=== PATIENT | male | born 1955 | race Caucasian/White ===

== ENCOUNTER → 2019-06-09 10:13 | Outpatient (BNVA) | payer BC, SELFPAY | PROVIDERS: Visit Provider Nurse Practitioner | DX: Z00.00 Encounter for general adult medical examination without abnormal findings (principal); J84.10 Pulmonary fibrosis, unspecified; K21.9 Gastro-esophageal reflux disease without esophagitis; Z12.5 Encounter for screening for malignant neoplasm of prostate; F17.210 Nicotine dependence, cigarettes, uncomplicated | CPT/HCPCS: 71046; 80053; 80061; 81003; 85025; G0103 ==

== ENCOUNTER → 2021-08-14 10:12 | Outpatient (BNVA) | payer MEDICARE, SELFPAY | PROVIDERS: Visit Provider Nurse Practitioner | DX: E78.2 Mixed hyperlipidemia (principal); Z12.5 Encounter for screening for malignant neoplasm of prostate; F17.210 Nicotine dependence, cigarettes, uncomplicated | CPT/HCPCS: 80053; 80061; 81000; 85025; G0103 ==

== ENCOUNTER 2021-09-04 12:24 | Oncology outpatient (recurring) (ONCR) | payer MEDICARE, SELFPAY | END 2021-09-19 23:59 | disposition home or self-care (01) | PROVIDERS: PCP Nurse Practitioner; Visit Provider Internal Medicine Medical Oncology | DX: D75.1 Secondary polycythemia (principal); F17.210 Nicotine dependence, cigarettes, uncomplicated; F10.20 Alcohol dependence, uncomplicated; Z79.899 Other long term (current) drug therapy | CPT/HCPCS: 80503; 81219; 81339; 81403; 81479; 99204; 99999 ==

== ENCOUNTER 2021-09-04 13:58 | Outpatient (CLI) | payer MEDICARE, SELFPAY ==
--- NOTE | 2021-09-04 14:11 | CT_ITS ---
WS: [email or web address] CT CHEST WITHOUT INTRAVENOUS CONTRAST HISTORY: SMOKER/HYPERLIPIDEMA TECHNIQUE: Contiguous 5 mm axial imaging performed on the thorax. Coronal and sagittal reformats are submitted. All CT scans at [facility] use at least one of these dose optimization techniques: automated exposure control; mA and/or kV adjustment per patient size (includes targeted exams where dose is matched to clinical indication); or iterative reconstruction. CONTRAST: None DLP: 694.10 mGy-cm. COMPARISON: Neck CT 11/12/2011. Lungs and central airway: LEFT apical pleural thickening and nodularity is asymmetric to the RIGHT. N odule measures 2.2 x 1.8 cm. Very similar appearance to the prior CT from 2011. Pleura: Normal. No pleural effusion. Heart and pericardium: Normal size heart with no pericardial effusion. Mediastinum and nora: Small benign-appearing lymph nodes. No adenopathy. Calcified LEFT hilar lymph n odes. Vessels: Mild atherosclerosis aorta. Normal size pulmonary artery. Chest wall and lower neck: No soft tissue masses. Upper abdomen: No adrenal mass. Visualized liver and gallbladder are negative. Splenic granulomata. Osseous structures: No destructive process. CT/CT chest wo con [id number] IMPRESSION: 1. Long-term stability LEFT apical pulmonary nodule and pleural thickening. Si milar to the prior study of 11/12/2011. 2. No adenopathy or additional mass. 3. Normal adrenal glands. 4. Normal heart.
== END 2021-09-04 13:59 | disposition home or self-care (01) ==
LOC: RAD 13:59
PROVIDERS: PCP Nurse Practitioner; Visit Provider Nurse Practitioner
DX: E78.2 Mixed hyperlipidemia (principal); F17.210 Nicotine dependence, cigarettes, uncomplicated; R91.1 Solitary pulmonary nodule; D75.1 Secondary polycythemia
CPT/HCPCS: 71250; 80053; 81270; 82668; 83615; 85025

== ENCOUNTER 2021-10-09 13:00 | Oncology outpatient (recurring) (ONCR) | payer MEDICARE, SELFPAY ==
--- NOTE | 2021-10-04 12:45 | US_ITS ---
WS: [email or web address] RENAL ULTRASOUND HISTORY: assess for renal tumor COMPARISON: None available. TECHNIQUE: 2-D and color Doppler imaging of the kidney submitted. Right kidney: 10.4 cm x 5.0 cm x 4.3 cm. Normal echogenicity with no hydronephrosis or mass. Left kidney: 10.8 cm x 5.8 cm x 4.7 cm. Normal echogenicity with no hydronephrosis or mass. Aorta: Mild dilatation and ectasia and aneurysmal formation of the aorta. Largest diameter 3.4 cm. Mo derate mural thickening is asymmetric. Urinary Bladder: Nondistended. US/US renal BI* [id number] IMPRESSION: 1. Normal renal ultrasound. No mass or obstruction. 2. Small abdominal aortic aneurysm, 3.4 cm maximum diameter.
[2021-10-09 12:37] LABS: Basophils % 0.4 %; Eosinophils # 0.2 10^3/uL (0.0-0.8); Eosinophils % 2.2 %; Hematocrit 56.2 % (42.0-52.0); Hemoglobin 19.5 g/dL (11.7-16.6); Lymphocytes # 2.4 10^3/uL (0.8-4.8); Lymphocytes % 29.9 %; Mean Corpuscular HGB Conc 34.7 g/dL (30.0-36.0); Mean Corpuscular Hemoglobin 32.5 pg (28.0-34.0); Mean Corpuscular Volume 93.7 fl (80-94); Mean Platelet Volume 9.6 fL (7.4-10.4); Monocytes # 0.8 10^3/uL (0.2-0.9); Monocytes % 9.4 %; Neutrophils # 4.65 10^3/uL (1.8-7.7); Neutrophils % 57.9 %; Nucleated Red Blood Cells % 0 %; Platelet Count 210 10^3/cmm (130-400); Red Cell Distribution Width 13.7 % (12.1-15.1); White Blood Count 8.1 10^3/uL (4.0-10.0)
[2021-10-09 12:49] VITALS: BP 116/72; PULSE 72; RESP 18; TEMP 36.6; O2SAT 98
[2021-10-09 13:19] VITALS: BP 119/79; PULSE 88; RESP 18; TEMP 36.7; O2SAT 95
== END 2021-10-19 23:59 | disposition home or self-care (01) ==
PROVIDERS: PCP Nurse Practitioner; Visit Provider Internal Medicine Medical Oncology
DX: D75.1 Secondary polycythemia (principal); Z53.9 Procedure and treatment not carried out, unspecified reason
CPT/HCPCS: 36415; 76770; 85025; 86850; 86900; 99195

== ENCOUNTER 2021-10-25 12:40 | Oncology outpatient (recurring) (ONCR) | payer MEDICARE, SELFPAY ==
[2021-10-25 13:01] LABS: Basophils # 0.1 10^3/uL (0.0-0.1); Basophils % 0.7 %; Eosinophils # 0.2 10^3/uL (0.0-0.8); Eosinophils % 2.7 %; Hematocrit 53.8 % (42.0-52.0); Hemoglobin 18.8 g/dL (11.7-16.6); Lymphocytes # 2.5 10^3/uL (0.8-4.8); Lymphocytes % 34.1 %; Mean Corpuscular HGB Conc 34.9 g/dL (30.0-36.0); Mean Corpuscular Hemoglobin 32.9 pg (28.0-34.0); Mean Corpuscular Volume 94.1 fl (80-94); Mean Platelet Volume 9.4 fL (7.4-10.4); Monocytes # 0.7 10^3/uL (0.2-0.9); Monocytes % 9.3 %; Neutrophils # 3.87 10^3/uL (1.8-7.7); Neutrophils % 53.1 %; Nucleated Red Blood Cells % 0 %; Platelet Count 225 10^3/cmm (130-400); Red Blood Count 5.72 10^6/uL (4.1-5.3); Red Cell Distribution Width 14.3 % (12.1-15.1); White Blood Count 7.3 10^3/uL (4.0-10.0)
== END 2021-11-19 23:59 | disposition home or self-care (01) ==
LOC: ONCMED 12:41
PROVIDERS: PCP Nurse Practitioner; Visit Provider Internal Medicine Medical Oncology
DX: D75.1 Secondary polycythemia (principal); F17.210 Nicotine dependence, cigarettes, uncomplicated
CPT/HCPCS: 85025; 99214

== ENCOUNTER → 2022-05-01 09:08 | Outpatient (BNVA) | payer MEDICARE, OTHER, SELFPAY | PROVIDERS: PCP Nurse Practitioner; Visit Provider Nurse Practitioner | DX: I71.40 Abdominal aortic aneurysm, without rupture, unspecified (principal); D75.1 Secondary polycythemia; R91.1 Solitary pulmonary nodule | CPT/HCPCS: 80053; 80061; 85025 ==

== ENCOUNTER 2022-05-18 08:18 | Oncology outpatient (recurring) (ONCR) | payer MEDICARE, OTHER, SELFPAY ==
[2022-05-07 14:14] LABS: Hematocrit 53.7 % (42.0-52.0); Hemoglobin 18.4 g/dL (11.7-16.6)
[2022-05-18 08:55] LABS: Basophils # 0.1 10^3/uL (0.0-0.1); Basophils % 0.8 %; Eosinophils # 0.3 10^3/uL (0.0-0.8); Eosinophils % 3.9 %; Hematocrit 55.1 % (42.0-52.0); Hemoglobin 19.1 g/dL (11.7-16.6); Lymphocytes # 2.2 10^3/uL (0.8-4.8); Lymphocytes % 30.4 %; Mean Corpuscular HGB Conc 34.7 g/dL (30.0-36.0); Mean Corpuscular Hemoglobin 32.6 pg (28.0-34.0); Mean Platelet Volume 9.6 fL (7.4-10.4); Monocytes # 0.7 10^3/uL (0.2-0.9); Monocytes % 9.4 %; Neutrophils # 4.08 10^3/uL (1.8-7.7); Neutrophils % 55.4 %; Nucleated Red Blood Cells % 0 %; Platelet Count 223 10^3/cmm (130-400); Red Blood Count 5.86 10^6/uL (4.1-5.3); Red Cell Distribution Width 12.8 % (12.1-15.1); White Blood Count 7.4 10^3/uL (4.0-10.0)
== END 2022-05-22 23:59 | disposition home or self-care (01) ==
PROVIDERS: PCP Nurse Practitioner; Visit Provider Internal Medicine Medical Oncology
DX: D75.1 Secondary polycythemia (principal)
CPT/HCPCS: 36415; 85014; 85018; 85025; 99214

== ENCOUNTER 2022-06-08 09:00 | Oncology outpatient (recurring) (ONCR) | payer MEDICARE, OTHER, SELFPAY ==
[2022-05-25 08:24] LABS: Basophils # 0.1 10^3/uL (0.0-0.1); Basophils % 0.7 %; Eosinophils # 0.3 10^3/uL (0.0-0.8); Eosinophils % 4.1 %; Hemoglobin 19.8 g/dL (11.7-16.6); Lymphocytes # 2.6 10^3/uL (0.8-4.8); Lymphocytes % 33.7 %; Mean Corpuscular HGB Conc 34.7 g/dL (30.0-36.0); Mean Corpuscular Hemoglobin 32.9 pg (28.0-34.0); Mean Corpuscular Volume 94.7 fl (80-94); Mean Platelet Volume 9.5 fL (7.4-10.4); Monocytes # 0.8 10^3/uL (0.2-0.9); Monocytes % 10.2 %; Neutrophils # 3.91 10^3/uL (1.8-7.7); Nucleated Red Blood Cells % 0 %; Platelet Count 216 10^3/cmm (130-400); Red Blood Count 6.02 10^6/uL (4.1-5.3); White Blood Count 7.7 10^3/uL (4.0-10.0)
[2022-06-08 08:13] LABS: Basophils # 0.1 10^3/uL (0.0-0.1); Basophils % 0.8 %; Eosinophils # 0.3 10^3/uL (0.0-0.8); Eosinophils % 4.1 %; Hematocrit 51.6 % (42.0-52.0); Hemoglobin 17.9 g/dL (11.7-16.6); Lymphocytes # 2.5 10^3/uL (0.8-4.8); Lymphocytes % 33.2 %; Mean Corpuscular HGB Conc 34.7 g/dL (30.0-36.0); Mean Corpuscular Hemoglobin 32.7 pg (28.0-34.0); Mean Corpuscular Volume 94.3 fl (80-94); Mean Platelet Volume 9.3 fL (7.4-10.4); Monocytes # 0.7 10^3/uL (0.2-0.9); Monocytes % 9.2 %; Neutrophils # 3.88 10^3/uL (1.8-7.7); Neutrophils % 52.4 %; Nucleated Red Blood Cells % 0 %; Platelet Count 247 10^3/cmm (130-400); Red Blood Count 5.47 10^6/uL (4.1-5.3); Red Cell Distribution Width 13.2 % (12.1-15.1); White Blood Count 7.4 10^3/uL (4.0-10.0)
== END 2022-06-19 23:59 | disposition home or self-care (01) ==
PROVIDERS: PCP Nurse Practitioner; Visit Provider Internal Medicine Medical Oncology
DX: D75.1 Secondary polycythemia (principal)
CPT/HCPCS: 36415; 85025; 99195

== ENCOUNTER 2022-06-08 10:52 | Outpatient (CLI) | payer MEDICARE, OTHER, SELFPAY ==
[2022-06-08] MEDS: iohexol 350 mg/mL 500 mL Btl (per mL) PO (11:24)
[2022-06-08] MEDS: iohexol 350 mg/mL 500 mL Btl (per mL) IV (12:22)
--- NOTE | 2022-06-08 12:30 | CT_ITS ---
WS: [email or web address] CT CHEST, ABDOMEN, AND PELVIS TECHNIQUE: Contrast-enhanced CT of the chest, abdomen, and pelvis with coronal and sagittal reformatt ed images. CLINICAL INFORMATION: D75.1 - Secondary polycythemia COMPARISON: CT chest September 04, 2021 DLP: 851.[address] scans at [facility] use at least one of these dose optimization techniques: automated e xposure control; mA and/or kV adjustment per patient size (includes targeted exams where dose is matc hed to clinical indication); or iterative reconstruction. CT CHEST: Mild chronic emphysematous changes. No acute pulmonary infiltrates. Stable pleural thickening with no dularity LEFT lung apex. This measures 1.7 x 1.9 x 0.9 cm unchanged. Stable pleural thickening LEFT l howard apex. Normal caliber thoracic aorta. Aortic calcification. Normal thyroid gland. Prominent peribronchial and mediastinal lymph nodes uncha nged. No axillary lymphadenopathy. Normal GE junction. CT ABDOMEN AND PELVIS: Diffuse fatty infiltration liver. Gallbladder is contracted. Normal portal vein and splenic vein. Nor mal pancreatic parenchymal enhancement. Normal spleen. Splenic granulomas. Tiny esophageal hiatal her skye. Adrenal glands are normal. Normal renal parenchymal enhancement. No hydronephrosis. Fusiform sloane donald infrarenal abdominal aortic aneurysm. Associated mural thrombus. Proximally measures 4.0 x 3.9 x 3.7 cm. Distally this measures approximately 2.8 x 3.1 x 2.4 cm AP by transverse by craniocaudal. Mild prostate enlargement measuring 4.5 CM. Normal sigmoid colon. No evidence of high-grade small or large bowel obstruction. CT/CT chest abdpel w/*[id number] IMPRESSION: 1. Stable LEFT apical pulmonary nodule with pleural thickening. This is unchan ged from previous. 2. A few prominent mediastinal and peribronchial lymph nodes unchanged from pr evious nonspecific but likely reactive. 3. Diffuse fatty infiltration liver. 4. Bilobed fusiform infrarenal abdominal aortic aneurysm measuring 4.0 x 3.9 x 3.7 cm in maximum dimension with associated mural thrombus. Recommend vascular surgery consultation. 5. Mild prostate enlargement measuring 4.5 CM.
== END 2022-06-08 10:53 | disposition home or self-care (01) ==
LOC: RAD 10:53
PROVIDERS: PCP Nurse Practitioner; Visit Provider Nurse Practitioner
DX: D75.1 Secondary polycythemia (principal); R91.1 Solitary pulmonary nodule; N40.0 Benign prostatic hyperplasia without lower urinary tract symptoms; K76.0 Fatty (change of) liver, not elsewhere classified; I71.43 Infrarenal abdominal aortic aneurysm, without rupture
CPT/HCPCS: 71260; 74177; Q9967

== ENCOUNTER 2022-07-05 10:30 | Oncology outpatient (recurring) (ONCR) | payer MEDICARE, OTHER, SELFPAY ==
[2022-06-22 09:41] LABS: Basophils # 0.1 10^3/uL (0.0-0.1); Basophils % 0.9 %; Eosinophils # 0.2 10^3/uL (0.0-0.8); Eosinophils % 3.6 %; Hematocrit 52.6 % (42.0-52.0); Hemoglobin 18.1 g/dL (11.7-16.6); Lymphocytes # 2.3 10^3/uL (0.8-4.8); Lymphocytes % 33.7 %; Mean Corpuscular HGB Conc 34.4 g/dL (30.0-36.0); Mean Corpuscular Hemoglobin 32.7 pg (28.0-34.0); Mean Corpuscular Volume 94.9 fl (80-94); Mean Platelet Volume 9.7 fL (7.4-10.4); Monocytes # 0.7 10^3/uL (0.2-0.9); Monocytes % 9.7 %; Nucleated Red Blood Cells % 0 %; Platelet Count 211 10^3/cmm (130-400); Red Blood Count 5.54 10^6/uL (4.1-5.3); White Blood Count 6.7 10^3/uL (4.0-10.0)
[2022-07-05 10:19] LABS: Basophils # 0.1 10^3/uL (0.0-0.1); Basophils % 0.9 %; Eosinophils # 0.2 10^3/uL (0.0-0.8); Eosinophils % 2.9 %; Hematocrit 51.2 % (42.0-52.0); Hemoglobin 17.9 g/dL (11.7-16.6); Lymphocytes # 2.2 10^3/uL (0.8-4.8); Mean Corpuscular Hemoglobin 33.3 pg (28.0-34.0); Mean Corpuscular Volume 95.3 fl (80-94); Mean Platelet Volume 9.7 fL (7.4-10.4); Monocytes # 0.5 10^3/uL (0.2-0.9); Monocytes % 7.7 %; Neutrophils # 3.84 10^3/uL (1.8-7.7); Neutrophils % 56.2 %; Nucleated Red Blood Cells % 0 %; Platelet Count 203 10^3/cmm (130-400); Red Blood Count 5.37 10^6/uL (4.1-5.3); Red Cell Distribution Width 12.5 % (12.1-15.1); White Blood Count 6.8 10^3/uL (4.0-10.0)
[2022-07-05 11:40] VITALS: BP 131/78; PULSE 64; O2SAT 95
== END 2022-07-20 23:59 | disposition home or self-care (01) ==
PROVIDERS: PCP Nurse Practitioner; Visit Provider Internal Medicine Medical Oncology
DX: D75.1 Secondary polycythemia (principal)
CPT/HCPCS: 36415; 85025; 99195

== ENCOUNTER 2022-08-03 09:14 | Oncology outpatient (recurring) (ONCR) | payer MEDICARE, OTHER, SELFPAY ==
[2022-08-03 09:27] VITALS: BP 142/85; PULSE 64; TEMP 36.3; O2SAT 97
[2022-08-03 09:36] LABS: Basophils # 0.1 10^3/uL (0.0-0.1); Eosinophils # 0.2 10^3/uL (0.0-0.8); Eosinophils % 3.1 %; Hematocrit 55.5 % (42.0-52.0); Hemoglobin 18.7 g/dL (11.7-16.6); Lymphocytes # 1.7 10^3/uL (0.8-4.8); Lymphocytes % 28.5 %; Mean Corpuscular HGB Conc 33.7 g/dL (30.0-36.0); Mean Corpuscular Volume 98.1 fl (80-94); Mean Platelet Volume 9.4 fL (7.4-10.4); Monocytes # 0.5 10^3/uL (0.2-0.9); Monocytes % 7.9 %; Neutrophils # 3.59 10^3/uL (1.8-7.7); Neutrophils % 59.3 %; Nucleated Red Blood Cells % 0 %; Platelet Count 221 10^3/cmm (130-400); Red Blood Count 5.66 10^6/uL (4.1-5.3); Red Cell Distribution Width 13.4 % (12.1-15.1); White Blood Count 6.1 10^3/uL (4.0-10.0)
[2022-08-03 10:44] VITALS: BP 152/79; PULSE 68; O2SAT 97
== END 2022-08-19 23:59 | disposition home or self-care (01) ==
PROVIDERS: PCP Nurse Practitioner; Visit Provider Internal Medicine Medical Oncology
DX: D75.1 Secondary polycythemia (principal)
CPT/HCPCS: 36415; 85025; 99195

== ENCOUNTER → 2022-08-21 13:54 | Outpatient (BNVA) | payer MEDICARE, OTHER, SELFPAY | PROVIDERS: PCP Nurse Practitioner; Visit Provider Nurse Practitioner | DX: R41.3 Other amnesia (principal) | CPT/HCPCS: 82607; 84443 ==

== ENCOUNTER 2022-08-31 08:41 | Oncology outpatient (recurring) (ONCR) | payer MEDICARE, OTHER, SELFPAY ==
[2022-08-31 09:00] VITALS: BP 136/78; PULSE 58; RESP 18; TEMP 36.3; O2SAT 98
[2022-08-31 09:21] LABS: Basophils # 0.1 10^3/uL (0.0-0.1); Basophils % 0.8 %; Eosinophils # 0.2 10^3/uL (0.0-0.8); Eosinophils % 3.3 %; Hematocrit 55.6 % (42.0-52.0); Hemoglobin 18.8 g/dL (11.7-16.6); Lymphocytes # 1.7 10^3/uL (0.8-4.8); Lymphocytes % 27.5 %; Mean Corpuscular HGB Conc 33.8 g/dL (30.0-36.0); Mean Corpuscular Hemoglobin 32.9 pg (28.0-34.0); Mean Corpuscular Volume 97.4 fl (80-94); Mean Platelet Volume 9.4 fL (7.4-10.4); Monocytes # 0.6 10^3/uL (0.2-0.9); Monocytes % 10.1 %; Neutrophils # 3.49 10^3/uL (1.8-7.7); Neutrophils % 58.1 %; Nucleated Red Blood Cells % 0 %; Platelet Count 198 10^3/cmm (130-400); Red Blood Count 5.71 10^6/uL (4.1-5.3); Red Cell Distribution Width 12.6 % (12.1-15.1)
[2022-08-31 10:35] VITALS: BP 120/75; PULSE 70; RESP 18; TEMP 36.2; O2SAT 97
== END 2022-09-19 23:59 | disposition home or self-care (01) ==
PROVIDERS: PCP Nurse Practitioner; Visit Provider Internal Medicine Medical Oncology
DX: D75.1 Secondary polycythemia (principal)
CPT/HCPCS: 36415; 85025; 99195

== ENCOUNTER 2022-09-05 13:22 | Outpatient (CLI) | payer MEDICARE, OTHER, SELFPAY ==
--- NOTE | 2022-09-05 13:30 | CT_ITS ---
WS: [email or web address] CT HEAD TECHNIQUE: Noncontrast CT of the head obtained from the skullbase to the vertex. CLINICAL INFORMATION: R41.3 - Other amnesia COMPARISON: MRI 2007 DLP: 976.[address] scans at [facility] use at least one of these dose optimization techniques: automated e xposure control; mA and/or kV adjustment per patient size (includes targeted exams where dose is matc hed to clinical indication); or iterative reconstruction. FINDINGS: No evidence of intracranial hemorrhage or mass effect. Ventricular system and basal cisterns are montoya nt. Mild small vessel changes with minimal parenchymal volume loss. No extra-axial fluid collections. No evidence of mass or mass effect. Paranasal sinuses and mastoid air cells are well aerated. .Normal visualized soft tissues. Normal pos terior nasopharynx. Low-attenuation subcutaneous nodule LEFT facial soft tissues measuring 11 x 8 mm. This overlies the L EFT temporal area. Recommend clinical correlation. This was present on the 2006 MRI but has increased in size. CT/CT head wo con* [id number] IMPRESSION: 1. No evidence of intracranial hemorrhage or mass effect. 2. Mild small vessel changes. Minimal parenchymal volume loss. 3. Vascular calcification. 4. Paranasal sinuses and mastoid air cells well aerated. 5. No acute intracranial findings.
== END 2022-09-05 13:23 | disposition home or self-care (01) ==
LOC: RAD 13:24
PROVIDERS: PCP Nurse Practitioner; Visit Provider Nurse Practitioner
DX: R41.3 Other amnesia (principal)
CPT/HCPCS: 70450

== ENCOUNTER 2022-10-09 12:00 | Oncology outpatient (recurring) (ONCR) | payer MEDICARE, OTHER, SELFPAY ==
[2022-09-28 10:13] LABS: Basophils # 0.1 10^3/uL (0.0-0.1); Basophils % 0.7 %; Eosinophils # 0.3 10^3/uL (0.0-0.8); Eosinophils % 3.1 %; Hematocrit 53.3 % (42.0-52.0); Hemoglobin 17.9 g/dL (11.7-16.6); Lymphocytes # 2.2 10^3/uL (0.8-4.8); Lymphocytes % 27.3 %; Mean Corpuscular HGB Conc 33.6 g/dL (30.0-36.0); Mean Corpuscular Hemoglobin 32.1 pg (28.0-34.0); Mean Corpuscular Volume 95.5 fl (80-94); Monocytes # 0.6 10^3/uL (0.2-0.9); Monocytes % 7.9 %; Neutrophils # 4.91 10^3/uL (1.8-7.7); Neutrophils % 60.8 %; Nucleated Red Blood Cells % 0 %; Platelet Count 215 10^3/cmm (130-400); Red Blood Count 5.58 10^6/uL (4.1-5.3); Red Cell Distribution Width 11.9 % (12.1-15.1); White Blood Count 8.1 10^3/uL (4.0-10.0)
[2022-10-02 12:15] VITALS: BP 119/71; PULSE 60; O2SAT 98
[2022-10-02 12:22] VITALS: BP 121/72; PULSE 59; TEMP 36.3; O2SAT 97
[2022-10-09 11:56] VITALS: BP 137/79; PULSE 68; RESP 18; TEMP 36.3; O2SAT 97
[2022-10-09 12:23] LABS: Basophils % 0.5 %; Eosinophils # 0.2 10^3/uL (0.0-0.8); Eosinophils % 2.7 %; Hematocrit 44.6 % (42.0-52.0); Hemoglobin 15.4 g/dL (11.7-16.6); Lymphocytes # 2.8 10^3/uL (0.8-4.8); Lymphocytes % 33.3 %; Mean Corpuscular HGB Conc 34.5 g/dL (30.0-36.0); Mean Corpuscular Hemoglobin 32.1 pg (28.0-34.0); Mean Corpuscular Volume 92.9 fl (80-94); Mean Platelet Volume 9.8 fL (7.4-10.4); Monocytes # 0.6 10^3/uL (0.2-0.9); Monocytes % 6.8 %; Neutrophils # 4.72 10^3/uL (1.8-7.7); Neutrophils % 56.5 %; Nucleated Red Blood Cells % 0 %; Platelet Count 238 10^3/cmm (130-400); Red Cell Distribution Width 11.8 % (12.1-15.1); White Blood Count 8.4 10^3/uL (4.0-10.0)
== END 2022-10-19 23:59 | disposition home or self-care (01) ==
PROVIDERS: Nurse Practitioner Family; PCP Nurse Practitioner; Visit Provider Internal Medicine Medical Oncology
DX: D75.1 Secondary polycythemia (principal); F17.210 Nicotine dependence, cigarettes, uncomplicated
CPT/HCPCS: 36415; 85025; 99195; 99213

== ENCOUNTER 2022-11-02 08:01 | Oncology outpatient (recurring) (ONCR) | payer MEDICARE, OTHER, SELFPAY ==
[2022-11-02 08:06] VITALS: BP 144/75; PULSE 66; RESP 18; TEMP 36.5; O2SAT 98
[2022-11-02 08:17] LABS: Basophils # 0.1 10^3/uL (0.0-0.1); Basophils % 0.7 %; Eosinophils # 0.4 10^3/uL (0.0-0.8); Eosinophils % 4.9 %; Hemoglobin 15.6 g/dL (11.7-16.6); Lymphocytes # 2.7 10^3/uL (0.8-4.8); Lymphocytes % 31.8 %; Mean Corpuscular HGB Conc 33.9 g/dL (30.0-36.0); Mean Corpuscular Hemoglobin 31.1 pg (28.0-34.0); Mean Corpuscular Volume 91.8 fl (80-94); Mean Platelet Volume 9.2 fL (7.4-10.4); Monocytes # 0.7 10^3/uL (0.2-0.9); Monocytes % 8.5 %; Neutrophils # 4.58 10^3/uL (1.8-7.7); Neutrophils % 53.9 %; Nucleated Red Blood Cells % 0 %; Platelet Count 221 10^3/cmm (130-400); Red Blood Count 5.01 10^6/uL (4.1-5.3); Red Cell Distribution Width 12.2 % (12.1-15.1); White Blood Count 8.5 10^3/uL (4.0-10.0)
== END 2022-11-19 23:59 | disposition home or self-care (01) ==
LOC: ONCMED 08:01
PROVIDERS: Nurse Practitioner Family; PCP Nurse Practitioner; Visit Provider Internal Medicine Medical Oncology
DX: D75.1 Secondary polycythemia (principal)
CPT/HCPCS: 36415; 85025

== ENCOUNTER 2022-11-16 07:56 | Oncology outpatient (recurring) (ONCR) | payer MEDICARE, OTHER, SELFPAY ==
[2022-11-16 08:37] LABS: Basophils # 0.1 10^3/uL (0.0-0.1); Basophils % 0.6 %; Eosinophils # 0.3 10^3/uL (0.0-0.8); Hematocrit 42.9 % (42.0-52.0); Hemoglobin 14.5 g/dL (11.7-16.6); Lymphocytes # 2.6 10^3/uL (0.8-4.8); Lymphocytes % 32.9 %; Mean Corpuscular HGB Conc 33.8 g/dL (30.0-36.0); Mean Corpuscular Volume 91.7 fl (80-94); Mean Platelet Volume 9.5 fL (7.4-10.4); Monocytes # 0.7 10^3/uL (0.2-0.9); Monocytes % 8.6 %; Neutrophils # 4.19 10^3/uL (1.8-7.7); Neutrophils % 53.6 %; Nucleated Red Blood Cells % 0 %; Platelet Count 223 10^3/cmm (130-400); Red Blood Count 4.68 10^6/uL (4.1-5.3); Red Cell Distribution Width 12.8 % (12.1-15.1); White Blood Count 7.8 10^3/uL (4.0-10.0)
[2022-11-16 09:23] VITALS: BP 145/72; PULSE 51; RESP 16; TEMP 36.3; O2SAT 99
== END 2022-11-19 23:59 | disposition home or self-care (01) ==
LOC: ONCMED 07:57
PROVIDERS: Internal Medicine Medical Oncology; PCP Nurse Practitioner; Visit Provider Internal Medicine Medical Oncology
DX: D75.1 Secondary polycythemia (principal)
CPT/HCPCS: 36415; 85025

== ENCOUNTER 2022-11-21 14:15 | Outpatient (CLI) | payer MEDICARE, OTHER, SELFPAY ==
--- NOTE | 2022-11-21 15:00 | CT_ITS ---
WS: [email or web address] CT ABDOMEN AND PELVIS NONCONTRAST HISTORY: I71.40 - Abdominal aortic aneurysm, without rupture, unsp... TECHNIQUE: Imaging performed through the abdomen and pelvis. Coronal and sagittal reformats are submi tted. All CT scans at [facility] use at least one of these dose optimization techniques: auto mated exposure control; mA and/or kV adjustment per patient size (includes targeted exams where dose is matched to clinical indication); or iterative reconstruction. DLP: 316.85 mGy.cm COMPARISON: 06/08/2022 Lower thorax: Lung bases are clear. Visualized heart is normal. No hiatal hernia. Liver: Normal size liver. No mass or bile duct dilatation. Gallbladder: Mildly contracted gallbladder with diffuse wall thickening. Similar findings as compared to 06/08/2022. Pancreas: Normal size and attenuation. Normal pancreatic duct. No pancreatitis or mass. Spleen: Normal size spleen with granulomata. Adrenal glands: Normal. No mass. Right kidney: Normal size kidney with no mass or hydronephrosis. Left kidney: Normal size kidney with no mass or hydronephrosis. Aorta: Mild bilobed, aneurysmal dilatation of aorta. Maximum diameter of the infrarenal aorta is 3.8 x 3.4 cm. Variable density within the lumen from thrombus. Otherwise without IV contrast cannot jonathan cterize the intraluminal contents further. No para-aortic fluid collection. No free fluid, intraperitoneal air or significant lymphadenopathy. GI tract: Normal noncontrast imaging of the stomach, small bowel and colon. No obstruction or wall th ickening. Normal appendix. Abdominal wall: Negative. No hernia. Pelvis: Normal bladder. Very minimal prostate gland enlargement. Osseous structures: Unremarkable. CT/CT abdomen pelvis wo con [id number] IMPRESSION: 1. Stable bilobed, infrarenal abdominal aortic aneurysm size. Maximum diameter 3.8 cm without increased since the prior study. Study was performed without IV contrast. 2. Contracted gallbladder with wall thickening. No adjacent inflammation. Cons ider chronic cholecystitis. 3. No GI tract obstruction.
== END 2022-11-21 14:16 | disposition home or self-care (01) ==
PROVIDERS: PCP Nurse Practitioner; Visit Provider Nurse Practitioner
DX: I71.43 Infrarenal abdominal aortic aneurysm, without rupture (principal); K82.9 Disease of gallbladder, unspecified
CPT/HCPCS: 74176; 82607; 84443

== ENCOUNTER 2022-11-30 09:21 | Oncology outpatient (recurring) (ONCR) | payer MEDICARE, OTHER, SELFPAY ==
[2022-11-30 09:25] VITALS: BP 145/85; PULSE 64; RESP 18; TEMP 36.3; O2SAT 98
[2022-11-30 09:55] LABS: Basophils # 0.1 10^3/uL (0.0-0.1); Basophils % 0.7 %; Eosinophils # 0.3 10^3/uL (0.0-0.8); Eosinophils % 3.6 %; Hematocrit 42.8 % (42.0-52.0); Hemoglobin 14.5 g/dL (11.7-16.6); Lymphocytes # 2.4 10^3/uL (0.8-4.8); Lymphocytes % 31.1 %; Mean Corpuscular HGB Conc 33.9 g/dL (30.0-36.0); Mean Corpuscular Hemoglobin 30.7 pg (28.0-34.0); Mean Corpuscular Volume 90.7 fl (80-94); Mean Platelet Volume 9.9 fL (7.4-10.4); Monocytes # 0.5 10^3/uL (0.2-0.9); Monocytes % 6.8 %; Neutrophils # 4.42 10^3/uL (1.8-7.7); Neutrophils % 57.5 %; Nucleated Red Blood Cells % 0 %; Platelet Count 234 10^3/cmm (130-400); Red Blood Count 4.72 10^6/uL (4.1-5.3); Red Cell Distribution Width 13.5 % (12.1-15.1); White Blood Count 7.7 10^3/uL (4.0-10.0)
[2022-11-30 10:05] LABS: Alanine Aminotransferase 17 U/L (0-41); Albumin Level 4.4 g/dL (3.5-5.2); Alkaline Phosphatase 66 U/L (40-130); Aspartate Amino Transferase 15 U/L (0-40); Blood Urea Nitrogen 11 mg/dL (8-23); Carbon Dioxide 29 mmol/L (22-29); Chloride 102 mmol/L (98-107); Chol HDL Ratio 3.38 mg/dL (1.0-5.00); Cholesterol 176 mg/dL (0-200); Creatinine Clr Calc Pharmacy 92.5316; Globulin 2.8 g/dL (1.3-4.6); Glomerular Filtration Rate 112.5 mL/min (90-130); Glucose 137 mg/dL (65-115); HDL Cholesterol 52 mg/dL (60-100); LDL Cholesterol Calculated 100 mg/dL (50-129); Osmolality Calculated 294 mOsm/kg (285-295); Sodium 141 mmol/L (136-145); Total Bilirubin 0.8 mg/dL (0.15-1.2); Total Protein 7.2 g/dL (6.6-8.7); Triglycerides 122 mg/dL (0-150); VLDL Cholestrol Calculation 24 mg/dL (0-30)
== END 2022-12-20 23:59 | disposition home or self-care (01) ==
PROVIDERS: Nurse Practitioner Family; PCP Nurse Practitioner; Visit Provider Internal Medicine Medical Oncology
DX: D75.1 Secondary polycythemia (principal)
CPT/HCPCS: 36415; 80053; 80061; 85025

== ENCOUNTER 2022-12-28 09:16 | Oncology outpatient (recurring) (ONCR) | payer MEDICARE, OTHER, SELFPAY ==
[2022-12-28 10:05] LABS: Basophils # 0.1 10^3/uL (0.0-0.1); Basophils % 0.7 %; Eosinophils # 0.3 10^3/uL (0.0-0.8); Eosinophils % 3.8 %; Hematocrit 39.5 % (37-53); Lymphocytes # 2.2 10^3/uL (0.8-4.8); Lymphocytes % 30.9 %; Mean Corpuscular HGB Conc 34.2 g/dL (30-55); Mean Corpuscular Hemoglobin 31.8 pg (27-33); Mean Corpuscular Volume 92.9 fl (82-101); Mean Platelet Volume 9.4 fL (7.4-10.4); Monocytes # 0.6 10^3/uL (0.2-0.9); Monocytes % 7.8 %; Neutrophils # 4.06 10^3/uL (1.8-7.7); Neutrophils % 56.5 %; Nucleated Red Blood Cells % 0 %; Platelet Count 232 10^3/cmm (157-399); Red Blood Count 4.25 10^6/uL (3.85-5.65); Red Cell Distribution Width 14.6 % (12.1-15.1); White Blood Count 7.18 10^3/uL (3.29-11.43)
--- NOTE | 2022-12-28 11:32 | PC.NURSE ---
cbc results reviewed with patient. no phlebotomy
== END 2023-01-19 23:59 | disposition home or self-care (01) ==
LOC: ONCMED 09:17
PROVIDERS: Nurse Practitioner Family; PCP Nurse Practitioner; Visit Provider Internal Medicine Medical Oncology
DX: D75.1 Secondary polycythemia (principal)
CPT/HCPCS: 36415; 85025

== ENCOUNTER 2023-01-25 08:24 | Oncology outpatient (recurring) (ONCR) | payer MEDICARE, OTHER, SELFPAY ==
[2023-01-25 09:03] LABS: Basophils # 0.1 10^3/uL (0.0-0.1); Basophils % 0.7 %; Eosinophils # 0.4 10^3/uL (0.0-0.8); Eosinophils % 4.7 %; Hematocrit 38.5 % (37-53); Lymphocytes # 2.5 10^3/uL (0.8-4.8); Lymphocytes % 29.1 %; Mean Corpuscular HGB Conc 35.1 g/dL (30-55); Mean Corpuscular Hemoglobin 32.8 pg (27-33); Mean Corpuscular Volume 93.4 fl (82-101); Monocytes # 0.7 10^3/uL (0.2-0.9); Monocytes % 7.8 %; Neutrophils # 5.01 10^3/uL (1.8-7.7); Neutrophils % 57.2 %; Nucleated Red Blood Cells % 0 %; Platelet Count 261 10^3/cmm (157-399); Red Blood Count 4.12 10^6/uL (3.85-5.65); Red Cell Distribution Width 12.9 % (12.1-15.1); White Blood Count 8.74 10^3/uL (3.29-11.43)
--- NOTE | 2023-01-25 09:31 | PC.NURSE ---
Received pts CBC results back, pt's Hct is 38.5. Phlebotomy orders are for Hct of 50 or greater. Called pt, notified of lab results and he does not need a phlebotomy. JW
== END 2023-02-19 23:59 | disposition home or self-care (01) ==
PROVIDERS: Nurse Practitioner Family; PCP Nurse Practitioner; Visit Provider Internal Medicine Medical Oncology
DX: D75.1 Secondary polycythemia (principal)
CPT/HCPCS: 36415; 85025

== ENCOUNTER 2023-03-21 12:30 | Oncology outpatient (recurring) (ONCR) | payer MEDICARE, OTHER, SELFPAY ==
[2023-02-22 10:11] LABS: Basophils # 0.1 10^3/uL (0.0-0.1); Basophils % 0.8 %; Eosinophils # 0.4 10^3/uL (0.0-0.8); Eosinophils % 4.8 %; Hematocrit 40.2 % (37-53); Lymphocytes # 2.4 10^3/uL (0.8-4.8); Lymphocytes % 31.2 %; Mean Corpuscular HGB Conc 34.8 g/dL (30-55); Mean Corpuscular Hemoglobin 32.7 pg (27-33); Mean Corpuscular Volume 93.9 fl (82-101); Mean Platelet Volume 9.2 fL (7.4-10.4); Monocytes # 0.7 10^3/uL (0.2-0.9); Monocytes % 9.3 %; Neutrophils # 4.05 10^3/uL (1.8-7.7); Neutrophils % 53.8 %; Nucleated Red Blood Cells % 0 %; Platelet Count 202 10^3/cmm (157-399); Red Blood Count 4.28 10^6/uL (3.85-5.65); Red Cell Distribution Width 12.3 % (12.1-15.1); White Blood Count 7.53 10^3/uL (3.29-11.43)
--- NOTE | 2023-02-22 10:57 | PC.NURSE ---
Called pt regarding Hct of 40.2. Notified pt that phlebotomy is not needed. Notified Maine Lizarraga NP of pts labs and that this nurse already called pt. JW
[2023-03-21 12:30] VITALS: BP 125/73; PULSE 65; RESP 16; TEMP 36.8; O2SAT 97
[2023-03-21 12:35] LABS: Basophils % 0.4 %; Eosinophils # 0.3 10^3/uL (0.0-0.8); Eosinophils % 3.1 %; Hematocrit 39.7 % (37-53); Lymphocytes # 2.5 10^3/uL (0.8-4.8); Lymphocytes % 30.9 %; Mean Corpuscular HGB Conc 34.5 g/dL (30-55); Mean Corpuscular Hemoglobin 32.5 pg (27-33); Mean Corpuscular Volume 94.3 fl (82-101); Mean Platelet Volume 9.3 fL (7.4-10.4); Monocytes # 0.7 10^3/uL (0.2-0.9); Neutrophils # 4.68 10^3/uL (1.8-7.7); Neutrophils % 57.4 %; Nucleated Red Blood Cells % 0 %; Platelet Count 216 10^3/cmm (157-399); Red Blood Count 4.21 10^6/uL (3.85-5.65); White Blood Count 8.15 10^3/uL (3.29-11.43)
--- NOTE | 2023-03-21 13:00 | PC.NURSE ---
called patient and informed that per labs phlebotomy is not needed at this time. patient verbalized understanding.
[2023-03-21 13:05] LABS: Alanine Aminotransferase 16 U/L (0-41); Albumin Level 4.2 g/dL (3.5-5.2); Alkaline Phosphatase 63 U/L (40-130); Anion Gap 15.3 (5-19); Aspartate Amino Transferase 12 U/L (0-40); Blood Urea Nitrogen 15 mg/dL (8-23); Carbon Dioxide 25 mmol/L (22-29); Chloride 105 mmol/L (98-107); Globulin 2.5 g/dL (1.3-4.6); Glomerular Filtration Rate 96.4 mL/min (90-130); Glucose 110 mg/dL (65-115); Osmolality Calculated 293 mOsm/kg (285-295); Potassium 4.3 mmol/L (3.5-5.1); Sodium 141 mmol/L (136-145); Total Bilirubin 0.4 mg/dL (0.15-1.2); Total Protein 6.7 g/dL (6.6-8.7)
== END 2023-03-21 23:59 | disposition home or self-care (01) ==
PROVIDERS: Nurse Practitioner Family; PCP Nurse Practitioner; Visit Provider Internal Medicine Medical Oncology
DX: D75.1 Secondary polycythemia (principal); Z79.899 Other long term (current) drug therapy; F17.210 Nicotine dependence, cigarettes, uncomplicated
CPT/HCPCS: 36415; 80053; 85025; 99214

== ENCOUNTER 2023-04-19 09:16 | Oncology outpatient (recurring) (ONCR) | payer MEDICARE, OTHER, SELFPAY ==
[2023-04-19 10:29] LABS: Basophils # 0.1 10^3/uL (0.0-0.1); Basophils % 0.3 %; Eosinophils # 0.1 10^3/uL (0.0-0.8); Eosinophils % 0.3 %; Hematocrit 41.2 % (37-53); Lymphocytes # 4.5 10^3/uL (0.8-4.8); Lymphocytes % 31.2 %; Mean Corpuscular HGB Conc 34.2 g/dL (30-55); Mean Corpuscular Hemoglobin 31.5 pg (27-33); Mean Platelet Volume 9.9 fL (7.4-10.4); Monocytes % 6.7 %; Neutrophils # 8.83 10^3/uL (1.8-7.7); Neutrophils % 60.9 %; Nucleated Red Blood Cells % 0 %; Platelet Count 316 10^3/cmm (157-399); Red Blood Count 4.48 10^6/uL (3.85-5.65)
== END 2023-04-21 23:59 | disposition home or self-care (01) ==
LOC: ONCMED 09:16
PROVIDERS: PCP Nurse Practitioner; Visit Provider Internal Medicine Medical Oncology
DX: D75.1 Secondary polycythemia (principal)
CPT/HCPCS: 36415; 85025

== ENCOUNTER → 2023-05-07 16:29 | Outpatient (BNVA) | payer MEDICARE, SELFPAY | PROVIDERS: PCP Nurse Practitioner; Visit Provider Nurse Practitioner | DX: K21.9 Gastro-esophageal reflux disease without esophagitis (principal) | CPT/HCPCS: 86003 ==

== ENCOUNTER 2023-05-17 09:08 | Oncology outpatient (recurring) (ONCR) | payer MEDICARE, OTHER, SELFPAY ==
[2023-05-17 09:50] LABS: Basophils % 0.5 %; Eosinophils # 0.4 10^3/uL (0.0-0.8); Eosinophils % 4.6 %; Hematocrit 40.4 % (37-53); Lymphocytes # 2.7 10^3/uL (0.8-4.8); Lymphocytes % 31.8 %; Mean Corpuscular HGB Conc 33.9 g/dL (30-55); Mean Corpuscular Hemoglobin 31.3 pg (27-33); Mean Corpuscular Volume 92.2 fl (82-101); Mean Platelet Volume 9.5 fL (7.4-10.4); Monocytes # 0.8 10^3/uL (0.2-0.9); Monocytes % 9.3 %; Neutrophils % 53.6 %; Nucleated Red Blood Cells % 0 %; Platelet Count 241 10^3/cmm (157-399); Red Blood Count 4.38 10^6/uL (3.85-5.65); Red Cell Distribution Width 12.7 % (12.1-15.1)
--- NOTE | 2023-05-17 10:32 | PC.NURSE ---
Called patient and informed that per Dr. Aguirre orders, patient does not meet criteria for phlebotomy. patient verbalized understanding.
== END 2023-05-22 23:59 | disposition home or self-care (01) ==
LOC: ONCMED 09:09
PROVIDERS: PCP Nurse Practitioner; Visit Provider Internal Medicine Medical Oncology
DX: D75.1 Secondary polycythemia (principal)
CPT/HCPCS: 36415; 85025

== ENCOUNTER 2023-05-31 10:59 | Outpatient (CLI) | payer MEDICARE, SELFPAY ==
--- NOTE | 2023-05-31 11:30 | USR_ITS ---
PROCEDURE INFORMATION: Exam: US Duplex Bilateral Lower Extremity Arteries Exam date and time: 05/31/2023 11:40 AM Age: 67 years old Clinical indication: Pain; Leg, lower; Bilateral; Additional info: D75.1 - secondary polycythemia TECHNIQUE: Imaging protocol: Real-time ultrasound scan of the arteries of the bilateral lower extremities with 2-D zuluaga scale, color Doppler flow and spectral waveform analysis. Images documented and saved. COMPARISON: US renal BI* [id number] 10/04/2021 12:58 PM FINDINGS: Right common femoral artery: No occlusion or significant stenosis. Normal waveform. Right superficial femoral artery: No occlusion or significant stenosis. Normal waveform. Right popliteal artery: No occlusion or significant stenosis. Normal waveform. Right calf/foot arteries: No occlusion or significant stenosis in the visualized arteries. Normal waveforms. Dorsalis pedis artery is patent. Left common femoral artery: No occlusion or significant stenosis. Normal waveform. Left superficial femoral artery: No occlusion or significant stenosis. Normal waveform. Left popliteal artery: No occlusion or significant stenosis. Normal waveform. Left calf/foot arteries: No occlusion or significant stenosis in the visualized arteries. Normal waveforms. Dorsalis pedis artery is patent. US/[place] [id number] IMPRESSION: No stenosis or occlusion.
== END 2023-05-31 11:00 | disposition home or self-care (01) ==
LOC: RAD 11:00
PROVIDERS: PCP Nurse Practitioner; Visit Provider Nurse Practitioner
DX: D75.1 Secondary polycythemia (principal); F17.210 Nicotine dependence, cigarettes, uncomplicated; M79.662 Pain in left lower leg; M79.661 Pain in right lower leg
CPT/HCPCS: 93925

== ENCOUNTER 2023-06-14 09:09 | Oncology outpatient (recurring) (ONCR) | payer MEDICARE, OTHER, SELFPAY ==
[2023-06-14 09:49] LABS: Basophils % 0.5 %; Eosinophils # 0.3 10^3/uL (0.0-0.8); Eosinophils % 4.2 %; Hematocrit 40.1 % (37-53); Lymphocytes # 2.4 10^3/uL (0.8-4.8); Mean Corpuscular HGB Conc 33.9 g/dL (30-55); Mean Corpuscular Hemoglobin 31.3 pg (27-33); Mean Corpuscular Volume 92.2 fl (82-101); Mean Platelet Volume 9.7 fL (7.4-10.4); Monocytes # 0.7 10^3/uL (0.2-0.9); Monocytes % 9.2 %; Neutrophils # 4.37 10^3/uL (1.8-7.7); Neutrophils % 55.8 %; Nucleated Red Blood Cells % 0 %; Platelet Count 240 10^3/cmm (157-399); Red Blood Count 4.35 10^6/uL (3.85-5.65); Red Cell Distribution Width 13.1 % (12.1-15.1); White Blood Count 7.83 10^3/uL (3.29-11.43)
--- NOTE | 2023-06-14 10:30 | PC.NURSE ---
Called pt, notified of Hct and Hgb. No phlebotomy needed. DOMENIC
== END 2023-06-20 23:59 | disposition home or self-care (01) ==
PROVIDERS: PCP Nurse Practitioner; Visit Provider Internal Medicine Medical Oncology
DX: D75.1 Secondary polycythemia (principal)
CPT/HCPCS: 36415; 85025

== ENCOUNTER 2023-07-12 09:16 | Oncology outpatient (recurring) (ONCR) | payer MEDICARE, OTHER, SELFPAY ==
[2023-07-12 09:55] LABS: Basophils % 0.6 %; Eosinophils # 0.3 10^3/uL (0.0-0.8); Eosinophils % 4.7 %; Hematocrit 40.6 % (37-53); Lymphocytes # 2.3 10^3/uL (0.8-4.8); Lymphocytes % 31.6 %; Mean Corpuscular HGB Conc 33.7 g/dL (30-55); Mean Corpuscular Hemoglobin 31.9 pg (27-33); Mean Corpuscular Volume 94.6 fl (82-101); Mean Platelet Volume 9.5 fL (7.4-10.4); Monocytes # 0.6 10^3/uL (0.2-0.9); Monocytes % 8.2 %; Neutrophils # 3.94 10^3/uL (1.8-7.7); Neutrophils % 54.8 %; Nucleated Red Blood Cells % 0 %; Platelet Count 239 10^3/cmm (157-399); Red Blood Count 4.29 10^6/uL (3.85-5.65); Red Cell Distribution Width 12.8 % (12.1-15.1); White Blood Count 7.19 10^3/uL (3.29-11.43)
== END 2023-07-21 23:59 | disposition home or self-care (01) ==
LOC: ONCMED 09:16
PROVIDERS: PCP Nurse Practitioner; Visit Provider Internal Medicine Medical Oncology
DX: D75.1 Secondary polycythemia (principal)
CPT/HCPCS: 36415; 85025

== ENCOUNTER 2023-08-09 09:01 | Oncology outpatient (recurring) (ONCR) | payer MEDICARE, OTHER, SELFPAY ==
[2023-08-09 09:24] LABS: Basophils # 0.1 10^3/uL (0.0-0.1); Basophils % 0.6 %; Eosinophils # 0.4 10^3/uL (0.0-0.8); Eosinophils % 4.5 %; Hematocrit 39.2 % (37-53); Lymphocytes # 2.5 10^3/uL (0.8-4.8); Lymphocytes % 28.2 %; Mean Corpuscular HGB Conc 34.7 g/dL (30-55); Mean Corpuscular Hemoglobin 31.8 pg (27-33); Mean Corpuscular Volume 91.6 fl (82-101); Mean Platelet Volume 9.5 fL (7.4-10.4); Monocytes # 0.8 10^3/uL (0.2-0.9); Monocytes % 8.9 %; Neutrophils # 5.16 10^3/uL (1.8-7.7); Neutrophils % 57.6 %; Nucleated Red Blood Cells % 0 %; Platelet Count 246 10^3/cmm (157-399); Red Blood Count 4.28 10^6/uL (3.85-5.65); Red Cell Distribution Width 12.8 % (12.1-15.1); White Blood Count 8.96 10^3/uL (3.29-11.43)
--- NOTE | 2023-08-09 09:52 | PC.NURSE ---
Called pt, notified of lab results and no phlebotomy needed. DOMENIC
== END 2023-08-20 23:59 | disposition home or self-care (01) ==
LOC: ONCMED 09:02
PROVIDERS: PCP Nurse Practitioner; Visit Provider Internal Medicine Medical Oncology
DX: D75.1 Secondary polycythemia (principal)
CPT/HCPCS: 36415; 85025

== ENCOUNTER → 2023-08-20 11:48 | Outpatient (BNVA) | payer MEDICARE, OTHER, SELFPAY | PROVIDERS: PCP Nurse Practitioner; Visit Provider Nurse Practitioner | DX: E78.2 Mixed hyperlipidemia (principal) | CPT/HCPCS: 80053; 80061; 84443 ==

== ENCOUNTER 2023-09-19 11:49 | Oncology outpatient (recurring) (ONCR) | payer MEDICARE, OTHER, SELFPAY ==
[2023-09-19 12:07] LABS: Basophils # 0.1 10^3/uL (0.0-0.1); Basophils % 0.6 %; Eosinophils # 0.2 10^3/uL (0.0-0.8); Eosinophils % 2.7 %; Mean Corpuscular HGB Conc 34.9 g/dL (30-55); Mean Corpuscular Hemoglobin 32.2 pg (27-33); Mean Corpuscular Volume 92.4 fl (82-101); Mean Platelet Volume 9.5 fL (7.4-10.4); Monocytes # 0.9 10^3/uL (0.2-0.9); Monocytes % 10.5 %; Neutrophils # 4.21 10^3/uL (1.8-7.7); Nucleated Red Blood Cells % 0 %; Platelet Count 217 10^3/cmm (157-399); Red Blood Count 4.22 10^6/uL (3.85-5.65); Red Cell Distribution Width 12.5 % (12.1-15.1); White Blood Count 8.42 10^3/uL (3.29-11.43)
[2023-09-19 12:29] LABS: Alanine Aminotransferase 13 U/L (0-41); Albumin Level 4.1 g/dL (3.5-5.2); Alkaline Phosphatase 70 U/L (40-130); Anion Gap 13.1 (5-19); Aspartate Amino Transferase 17 U/L (0-40); Blood Urea Nitrogen 16 mg/dL (8-23); Calcium 8.7 mg/dL (8.5-10.5); Carbon Dioxide 26 mmol/L (22-29); Chloride 103 mmol/L (98-107); Globulin 2.6 g/dL (1.3-4.6); Glomerular Filtration Rate 112.1 mL/min (90-130); Glucose 92 mg/dL (65-115); Osmolality Calculated 287 mOsm/kg (285-295); Potassium 4.1 mmol/L (3.5-5.1); Sodium 138 mmol/L (136-145); Total Bilirubin 0.4 mg/dL (0.15-1.2); Total Protein 6.7 g/dL (6.6-8.7)
== END 2023-09-20 23:59 | disposition home or self-care (01) ==
PROVIDERS: Nurse Practitioner Family; PCP Nurse Practitioner; Visit Provider Internal Medicine Medical Oncology
DX: D75.1 Secondary polycythemia (principal); F17.200 Nicotine dependence, unspecified, uncomplicated; Z79.899 Other long term (current) drug therapy
CPT/HCPCS: 36415; 80053; 85025; 99213

== ENCOUNTER → 2023-09-23 09:50 | Outpatient (BNVA) | payer MEDICARE, OTHER, SELFPAY | PROVIDERS: PCP Nurse Practitioner; Visit Provider Nurse Practitioner | DX: M79.605 Pain in left leg (principal); M54.50 Low back pain, unspecified | CPT/HCPCS: 73502; 73552 ==

== ENCOUNTER 2023-09-25 09:56 | Outpatient (CLI) | payer MEDICARE, OTHER, SELFPAY ==
--- NOTE | 2023-09-25 10:02 | XR_ITS ---
WS: [email or web address] XR lumbar spine 2-3V* [id number] REASON FOR EXAM: M54.50 - Low back pain, unspecified FINDINGS: Mild dextrorotatory scoliosis. Normal lumbar lordosis. No significant vertebral body abnormality. Mild narrowing of the disc space at L4-L5 with mild endplate sclerosis and osteophytosis. No spondylolysis. No significant spondylolisthesis. Mild to moderate degenerative change in the facet joints L4-S1. XR/XR lumbar spine 2-3V* [id number] IMPRESSION: Mild degenerative spondylosis.
== END 2023-09-25 09:57 | disposition home or self-care (01) ==
LOC: RAD 09:58
PROVIDERS: PCP Nurse Practitioner; Visit Provider Nurse Practitioner
DX: M54.50 Low back pain, unspecified (principal); M79.605 Pain in left leg
CPT/HCPCS: 72100

== ENCOUNTER 2023-10-30 08:19 | Outpatient (CLI) | payer MEDICARE, OTHER, SELFPAY ==
--- NOTE | 2023-10-30 08:45 | MR_ITS ---
WS: [email or web address] MRI LUMBAR SPINE NONCONTRAST TECHNIQUE: Sagittal T1, T2 and STIR imaging. Axial T1 and T2 imaging. CLINICAL INFORMATION: M54.50 - Low back pain, unspecified COMPARISON: None. FINDINGS: Mild lumbar curve. No acute compression. Slight anterolisthesis L4 on L5. No high-grade central canal stenosis. L1-L2: Mild annular bulging. Mild facet arthropathy. Spinal canal and foramina are patent. L2-L3: Mild annular bulging. Slight effacement of the ventral thecal sac. Mild RIGHT and no significa nt LEFT foraminal narrowing. Mild facet arthropathy. L3-L4: Mild annular bulging. Moderate facet arthropathy. Spinal canal and foramen are patent. L4-L5: Slight anterolisthesis L4 on L5 with mild central canal stenosis. Mild annular bulging with im pingement on the traversing LEFT greater than RIGHT L5 nerve roots. Moderate facet arthropathy. Mild LEFT greater than RIGHT foraminal narrowing. L5-S1: Mild annular bulging. Spinal canal and foramen are patent. Mild facet arthropathy. Visualized pelvic bony structures: Normal. Paravertebral soft tissues: Normal. Mild central canal stenosis in the cervical spine on the [facility] imaging. Large lobulated infrarenal abdominal aortic aneurysm described below. MR/MR lumbar spine wo con* [id number] IMPRESSION: 1. Large lobulated infrarenal abdominal aortic aneurysm measuring approximatel y 3.6 x 3.7 cm similar to the prior CT abdomen pelvis 11/21/2022. This can be fol lowed up with CTA abdomen/pelvis. 2. Annular bulging L4-5 with mild central canal stenosis and slight impingemen t on the traversing LEFT greater than RIGHT L5 nerve roots. 3. Moderate facet arthropathy L4-L5 and L5-S1. 4. Mild central canal stenosis in the cervical spine on the [facility] [employer] imaging.
== END 2023-10-30 08:20 | disposition home or self-care (01) ==
LOC: RAD 08:20
PROVIDERS: PCP Nurse Practitioner; Visit Provider Nurse Practitioner
DX: M43.8X6 Other specified deforming dorsopathies, lumbar region (principal); M51.36 Other intervertebral disc degeneration, lumbar region; M48.061 Spinal stenosis, lumbar region without neurogenic claudication; M47.896 Other spondylosis, lumbar region; M51.37 Other intervertebral disc degeneration, lumbosacral region; M48.07 Spinal stenosis, lumbosacral region; I71.40 Abdominal aortic aneurysm, without rupture, unspecified
CPT/HCPCS: 72148

== ENCOUNTER 2023-12-20 09:04 | Oncology outpatient (recurring) (ONCR) | payer MEDICARE, OTHER, SELFPAY ==
[2023-12-20 09:35] LABS: Basophils % 0.6 %; Eosinophils # 0.3 10^3/uL (0.0-0.8); Eosinophils % 3.9 %; Hematocrit 42.5 % (37-53); Lymphocytes # 2.3 10^3/uL (0.8-4.8); Lymphocytes % 31.6 %; Mean Corpuscular HGB Conc 34.1 g/dL (30-55); Mean Corpuscular Hemoglobin 31.9 pg (27-33); Mean Corpuscular Volume 93.6 fl (82-101); Mean Platelet Volume 9.6 fL (7.4-10.4); Monocytes # 0.6 10^3/uL (0.2-0.9); Monocytes % 8.1 %; Neutrophils # 3.96 10^3/uL (1.8-7.7); Neutrophils % 55.7 %; Nucleated Red Blood Cells % 0 %; Platelet Count 252 10^3/cmm (157-399); Red Blood Count 4.54 10^6/uL (3.85-5.65); Red Cell Distribution Width 13.1 % (12.1-15.1); White Blood Count 7.12 10^3/uL (3.29-11.43)
--- NOTE | 2023-12-20 09:54 | PC.NURSE ---
Notified pt of Hgb and Hct. No phlebotomy needed. JW
== END 2023-12-21 23:59 | disposition home or self-care (01) ==
PROVIDERS: PCP Nurse Practitioner; Visit Provider Internal Medicine Medical Oncology
DX: D75.1 Secondary polycythemia (principal)
CPT/HCPCS: 36415; 85025

== ENCOUNTER → 2024-02-10 08:08 | Outpatient (BNVA) | payer MEDICARE, OTHER, SELFPAY | PROVIDERS: PCP Nurse Practitioner; Visit Provider Nurse Practitioner | DX: Z12.5 Encounter for screening for malignant neoplasm of prostate (principal); E78.2 Mixed hyperlipidemia; D75.1 Secondary polycythemia | CPT/HCPCS: 80053; 80061; 84443; 85025; G0103 ==

== ENCOUNTER 2024-02-20 08:00 | Outpatient (CLI) | payer MEDICARE, OTHER, SELFPAY ==
--- NOTE | 2024-02-20 08:30 | CT_ITS ---
WS: [email or web address] CT ABDOMEN AND PELVIS WITH CONTRAST HISTORY: I71.40 - Abdominal aortic aneurysm, without rupture, unsp... TECHNIQUE: Imaging performed of the abdomen and pelvis with IV contrast. Single phase imaging of the abdomen. Coronal and sagittal reformats are submitted. All CT scans at [facility] use at [address] one of these dose optimization techniques: automated exposure control; mA and/or kV adjustment per patient size (includes targeted exams where dose is matched to clinical indication); or iterative re construction. IV CONTRAST: Omnipaque 350; 100 mL IV. Oral contrast: No DLP: 330.48 mGy.cm COMPARISON: 11/21/2022 Lower thorax: Lung bases are clear. Heart is normal size. No hiatal hernia. Liver/biliary system: Normal size with no intrahepatic dilatation. Gallbladder: Normal. No gallstones or wall thickening. No pericholecystic fluid. Pancreas: Normal size pancreas and pancreatic duct. No adjacent inflammation. Spleen: Normal size spleen. No mass or infarct. Adrenal glands: Normal. Right kidney: Normal. Left kidney: Normal size. Lower pole cortex with decreased enhancement is likely related to ischemic disease. The remaining kidney is normally enhancing. Aorta: Bilobed abdominal aneurysm is again identified. Superior aneurysmal dilatation measures 4.3 x 4.3 cm and extends over a length of 5.1 cm. Near circumferential thrombus. Smaller aneurysmal dilatat ion more distally measures 3.2 x 3.1 cm. Iliac arteries are both patent with mild ectasia and atheros clerotic plaque. Lymphadenopathy: None. Free fluid: None. GI tract: Normal stomach. No small bowel dilatation. Marked fecal retention in the distal colon. Norm al appendix. Abdominal wall: Unremarkable abdominal wall. No hernia. Pelvis: Normally distended urinary bladder. Bones: Unremarkable. CT/CT abdomen pelvis w con* [id number] IMPRESSION: 1. Bilobed abdominal aortic aneurysm is again identified. Maximum diameter of the infrarenal component measures 4.3 x 4.3 cm. Diameter as increased from 3.8 x 3.5 cm on the study from 11/21/2022. Smaller distal aorta dilatation just above the bifurcation is unchanged. 2. Atherosclerosis common iliac arteries. 3. Normal mesenteric arteries. 4. No renal obstruction. 5. Decreased cortical enhancement inferior pole LEFT kidney. Probably a focal area of ischemia with decreased blood flow to the lower pole cortex. Less likel y urinary tract infection.
[2024-02-20] MEDS: iohexol 350 mg/mL 500 mL Btl (per mL) IV (08:36)
== END 2024-02-20 08:01 | disposition home or self-care (01) ==
LOC: RAD 08:01
PROVIDERS: PCP Nurse Practitioner; Visit Provider Nurse Practitioner
DX: I71.40 Abdominal aortic aneurysm, without rupture, unspecified (principal); I70.8 Atherosclerosis of other arteries; R93.421 Abnormal radiologic findings on diagnostic imaging of right kidney
CPT/HCPCS: 74177; 80053; 80061; 84443; 85025; G0103

== ENCOUNTER 2024-02-28 08:54 | Oncology outpatient (recurring) (ONCR) | payer MEDICARE, OTHER, SELFPAY ==
[2024-02-28 09:23] LABS: Basophils # 0.1 10^3/uL (0.0-0.1); Basophils % 0.7 %; Eosinophils # 0.2 10^3/uL (0.0-0.8); Eosinophils % 3.5 %; Lymphocytes # 2.3 10^3/uL (0.8-4.8); Lymphocytes % 33.1 %; Mean Corpuscular HGB Conc 33.7 g/dL (30-55); Mean Corpuscular Hemoglobin 31.5 pg (27-33); Mean Corpuscular Volume 93.6 fl (82-101); Mean Platelet Volume 9.7 fL (7.4-10.4); Monocytes # 0.7 10^3/uL (0.2-0.9); Monocytes % 9.8 %; Neutrophils # 3.65 10^3/uL (1.8-7.7); Neutrophils % 52.8 %; Nucleated Red Blood Cells % 0 %; Platelet Count 263 10^3/cmm (157-399); Red Blood Count 4.38 10^6/uL (3.85-5.65); Red Cell Distribution Width 12.5 % (12.1-15.1); White Blood Count 6.92 10^3/uL (3.29-11.43)
[2024-02-28 09:35] LABS: Alanine Aminotransferase 13 U/L (0-41); Albumin Level 4.3 g/dL (3.5-5.2); Alkaline Phosphatase 73 U/L (40-130); Anion Gap 14.4 (5-19); Aspartate Amino Transferase 15 U/L (0-40); Blood Urea Nitrogen 12 mg/dL (8-23); Calcium 8.1 mg/dL (8.5-10.5); Carbon Dioxide 27 mmol/L (22-29); Chloride 104 mmol/L (98-107); Creatinine Clr Calc Pharmacy 92.1715; Globulin 2.4 g/dL (1.3-4.6); Glomerular Filtration Rate 96.1 mL/min (90-130); Glucose 107 mg/dL (65-115); Osmolality Calculated 292 mOsm/kg (285-295); Potassium 4.4 mmol/L (3.5-5.1); Sodium 141 mmol/L (136-145); Total Bilirubin 0.4 mg/dL (0.15-1.2); Total Protein 6.7 g/dL (6.6-8.7)
== END 2024-03-21 23:59 | disposition home or self-care (01) ==
PROVIDERS: PCP Nurse Practitioner; Visit Provider Nurse Practitioner Family
DX: D75.1 Secondary polycythemia (principal); F17.210 Nicotine dependence, cigarettes, uncomplicated; Z79.899 Other long term (current) drug therapy
CPT/HCPCS: 36415; 80053; 85025; 99213

== ENCOUNTER 2024-05-29 08:46 | Oncology outpatient (recurring) (ONCR) | payer MEDICARE, OTHER, SELFPAY ==
[2024-05-29 09:16] LABS: Basophils # 0.1 10^3/uL (0.0-0.1); Basophils % 0.8 %; Eosinophils # 0.3 10^3/uL (0.0-0.8); Eosinophils % 3.7 %; Hematocrit 40.5 % (37-53); Lymphocytes # 2.7 10^3/uL (0.8-4.8); Lymphocytes % 29.6 %; Mean Corpuscular HGB Conc 33.6 g/dL (30-55); Mean Corpuscular Volume 92.3 fl (82-101); Mean Platelet Volume 9.5 fL (7.4-10.4); Monocytes # 0.8 10^3/uL (0.2-0.9); Monocytes % 9.1 %; Neutrophils # 5.16 10^3/uL (1.8-7.7); Neutrophils % 56.5 %; Nucleated Red Blood Cells % 0 %; Platelet Count 245 10^3/cmm (157-399); Red Blood Count 4.39 10^6/uL (3.85-5.65); Red Cell Distribution Width 12.4 % (12.1-15.1); White Blood Count 9.14 10^3/uL (3.29-11.43)
[2024-05-29 09:36] LABS: Alanine Aminotransferase 17 U/L (0-41); Alkaline Phosphatase 70 U/L (40-130); Anion Gap 15.2 (5-19); Aspartate Amino Transferase 16 U/L (0-40); Blood Urea Nitrogen 13 mg/dL (8-23); Calcium 8.5 mg/dL (8.5-10.5); Carbon Dioxide 26 mmol/L (22-29); Chloride 104 mmol/L (98-107); Cholesterol 164 mg/dL (0-200); Globulin 2.8 g/dL (1.3-4.6); Glomerular Filtration Rate 96.1 mL/min (90-130); Glucose 101 mg/dL (65-115); HDL Cholesterol 41 mg/dL (60-100); LDL Cholesterol Calculated 89 mg/dL (50-129); Osmolality Calculated 292 mOsm/kg (285-295); Potassium 4.2 mmol/L (3.5-5.1); Sodium 141 mmol/L (136-145); Total Bilirubin 0.5 mg/dL (0.15-1.2); Total Protein 6.8 g/dL (6.6-8.7); Triglycerides 169 mg/dL (0-150); VLDL Cholestrol Calculation 34 mg/dL (0-30)
== END 2024-06-19 23:59 | disposition home or self-care (01) ==
LOC: ONCMED 08:46
PROVIDERS: PCP Nurse Practitioner; Visit Provider Nurse Practitioner Family
DX: D75.1 Secondary polycythemia (principal); E78.2 Mixed hyperlipidemia
CPT/HCPCS: 36415; 80053; 80061; 85025

== ENCOUNTER 2024-08-27 09:05 | Oncology outpatient (recurring) (ONCR) | payer MEDICARE, OTHER, SELFPAY ==
[2024-08-27 10:22] LABS: Basophils # 0.1 10^3/uL (0.0-0.1); Basophils % 0.7 %; Eosinophils # 0.4 10^3/uL (0.0-0.8); Eosinophils % 4.7 %; Hematocrit 43.1 % (37-53); Lymphocytes # 2.6 10^3/uL (0.8-4.8); Lymphocytes % 33.3 %; Mean Corpuscular HGB Conc 33.9 g/dL (30-55); Mean Corpuscular Hemoglobin 31.7 pg (27-33); Mean Corpuscular Volume 93.5 fl (82-101); Mean Platelet Volume 9.8 fL (7.4-10.4); Monocytes # 0.7 10^3/uL (0.2-0.9); Monocytes % 9.4 %; Neutrophils # 3.95 10^3/uL (1.8-7.7); Neutrophils % 51.6 %; Nucleated Red Blood Cells % 0 %; Platelet Count 211 10^3/cmm (157-399); Red Blood Count 4.61 10^6/uL (3.85-5.65); Red Cell Distribution Width 12.8 % (12.1-15.1); White Blood Count 7.65 10^3/uL (3.29-11.43)
[2024-08-27 10:46] LABS: Alanine Aminotransferase 14 U/L (0-41); Albumin Level 4.1 g/dL (3.5-5.2); Alkaline Phosphatase 64 U/L (40-130); Anion Gap 14.3 (5-19); Aspartate Amino Transferase 14 U/L (0-40); Blood Urea Nitrogen 11 mg/dL (8-23); Calcium 8.6 mg/dL (8.5-10.5); Carbon Dioxide 25 mmol/L (22-29); Chloride 106 mmol/L (98-107); Globulin 2.7 g/dL (1.3-4.6); Glomerular Filtration Rate 111.8 mL/min (90-130); Glucose 96 mg/dL (65-115); Osmolality Calculated 291 mOsm/kg (285-295); Potassium 4.3 mmol/L (3.5-5.1); Sodium 141 mmol/L (136-145); Total Bilirubin 0.5 mg/dL (0.15-1.2); Total Protein 6.8 g/dL (6.6-8.7)
== END 2024-09-19 23:59 | disposition home or self-care (01) ==
PROVIDERS: Internal Medicine; PCP Nurse Practitioner; Visit Provider Nurse Practitioner Family
DX: D75.1 Secondary polycythemia (principal); E78.2 Mixed hyperlipidemia
CPT/HCPCS: 36415; 80053; 85025; 99213

== ENCOUNTER → 2024-12-09 09:11 | Outpatient (BNVA) | payer MEDICARE, OTHER, SELFPAY | PROVIDERS: PCP Nurse Practitioner; Visit Provider Nurse Practitioner | DX: E78.2 Mixed hyperlipidemia (principal) | CPT/HCPCS: 80053; 80061; 85025 ==

== ENCOUNTER 2025-02-25 08:11 | Oncology outpatient (recurring) (ONCR) | payer MEDICARE, OTHER, SELFPAY ==
--- NOTE | 2025-02-25 08:30 | CT_ITS ---
WS: [email or web address] CTA ABDOMEN TECHNIQUE: Noncontrast plus contrast enhanced CTA of the abdominal aorta with coronal and sagittal reformatted images and additional MIP Images. CLINICAL INFORMATION: I71.40 - Abdominal aortic aneurysm, without rupture, unsp... COMPARISON: 2023 DLP: 223.[address] scans at [facility] use at least one of these dose optimization techniques: automated exposure control; mA and/or kV adjustment per patient size (includes targeted exams where dose is matched to clinical indication); or iterative reconstruction. FINDINGS: Infrarenal fusiform abdominal aortic aneurysm measuring 4.4 x 4.8 x 5.7 cm AP by transverse by craniocaudal. Surrounding mural thrombus. Bilobed aneurysm configuration with smaller aneurysm component distally measuring 3.0 x 3.5 cm AP by transverse. Previously this measured 4.3 x 4.3 x 5.1 cm. Smaller distal aneurysm component previously measured 3.2 x 3.1 cm Celiac and SMA are patent. Renal arteries are patent. Slight bibasilar atelectasis. Normal liver. Normal spleen. Small esophageal hiatal hernia. Normal pancreatic parenchymal enhancement. Normal portal vein and splenic vein. Adrenal glands are normal. Normal renal parenchymal enhancement. No hydronephrosis. Tiny fat-containing umbilical hernia. CT/CT angio abdomen [id number] IMPRESSION: Bilobed infrarenal abdominal aortic aneurysm measures a few millimeters larger today but not significantly changed compared to previous. Recommend continued s urveillance.
[2025-02-25 08:57] LABS: Blood Urea Nitrogen 12 mg/dL (8-23)
[2025-02-25] MEDS: iohexol 350 mg/mL 500 mL Btl (per mL) IV (09:06)
== END 2025-03-21 23:59 | disposition home or self-care (01) ==
LOC: RAD 08:14 → ONCMED 11:25
PROVIDERS: PCP Nurse Practitioner; Visit Provider Nurse Practitioner Family
DX: I71.40 Abdominal aortic aneurysm, without rupture, unspecified (principal); I21.9 Acute myocardial infarction, unspecified; R93.89 Abnormal findings on diagnostic imaging of other specified body structures; K44.9 Diaphragmatic hernia without obstruction or gangrene
CPT/HCPCS: 74175; 82565; 84520